=== PATIENT | male | born 2000 | race Caucasian/White ===

== ENCOUNTER 2023-07-01 09:07 | Outpatient (CLI) | payer BC ==
[2023-07-01] MEDS ORDERED: Iopamidol 300 61% 100 ML VIAL FS ONE (12:26)
== END 2023-07-01 09:08 | disposition home or self-care (01) ==
LOC: CSHCT 09:07
PROVIDERS: ATTEND Internal Medicine Gastroenterology
DX: R10.30 Lower abdominal pain, unspecified (principal); R93.5 Abnormal findings on diagnostic imaging of other abdominal regions, including retroperitoneum
CPT/HCPCS: 74178; Q9967